=== PATIENT | female | born 1990 | race Caucasian/White ===

== ENCOUNTER 2019-07-27 08:51 | Day surgery (SDC) | payer BC ==
--- NOTE | 2019-07-26 15:47 | PCM.LDHP ---
L&D History of Present Illness - General Date of Service: 07/27/19 Admit Problem/Dx: Admission Diagnosis/Problem Admission Diagnosis/Problem 07/26/19 15:32 Letha is a 28-year-old 1 para 0 white female who is 22-6/7 weeks gestational age upon admission with an NATAN of 11/26/2019. She was admitted for a modified Shirodkar or modified John cervical cerclage placement. Diagnosis is incompetent cervix. Source of Information: Patient History Limitations: Reports: No Limitations - History of Present Illness Introduction:: Letha is a 28-year-old 1 para 0 white female who is 22-6/7 weeks gestational age upon admission with an NATAN of 11/26/2019. She was admitted for a modified Shirodkar or modified John cervical cerclage placement. Diagnosis is incompetent cervix. His been evaluated over the last week and found to have a following and progressively shortening cervix. On 07/16/2019 a routine complete obstetric ultrasound was performed and showed a cervix which had slight funneling but had a length of 4.4 cm. This was done transabdominally with a full bladder and decision was made to repeat ultrasound in 1 week to do a transvaginal ultrasound for reevaluation. On 07/26/2019 repeat ultrasound, this time done transvaginally, showed the appearance of funneling at the internal cervical os. The cervical length is diminished 2.2 cm. The findings are most probably consistent with early incompetent cervix. It was made to proceed with placement of a cervical cerclage. The procedure of modified Shirodkar versus John cervical cerclage is asked with patient. She appears to understand, appears to understand the risks versus benefits and wishes to proceed. [employer] SUPER[employer]OR history: Patient is a 1 para 0 NATAN of 11/26/2019 as determined by early ultrasound done at 7-2/7 weeks gestational age. 2 other ultrasounds been done which are supportive of her first ultrasound evaluation. Letha was seen for this at 10-2/7 weeks gestational age and has been seen on a couple occasions since that time. She has had a relatively unremarkable otherwise. Her [place] depression screening score was 5. She had her flu shot on 05/02/2019. She plans to breast-feed. She underwent pre- quell genetic testing which was negative for trisomy 21, 18, 13. She is rubella equivocal and recommendations for her to receive MMR after delivery. Laboratory testing and shows her blood to be A+, negative antibody screen. First hemoglobin was 14.1 g/dL. Platelets are 247,000. Rubella titer shows equivocal status. RPR is nonreactive. Urine culture was within normal limits. Hepatitis B surface antigen and HIV assays were both negative. Media and gonorrhea as were both negative. TSH done on 06/08/2019 was normal at 1.31 trina-international units per liter. The strep screen was negative. Fibronectin done 07/16/2019 was positive. Allergies: Ibuprofen Medications: 1. vitamins 1 daily 2. Levothyroxine 25 g orally daily Past medical history: 1. Abnormal Pap smear in the past with dysplasia treated with a LEEP Past surgical history: 1. Colonoscopy 2. LEEP Family history: Mother is alive, has COPD at age 64, is a smoker. History of later term miscarriage 2. Father is 15 years agowas a smoker. 4 brothers are all alive. 4 sisters all alive and well. One with alcoholism and 1 with history of early miscarriage. Maternal grandmother is secondary to cancer at age 75+ years. Maternal grandfather is secondary to suicide. Paternal grandmother is secondary to breast cancer at age 70. Paternal grandfather is at age 90cause uncertain. No known family history of cancer, bleeding/blood clotting disorders, anesthesia related issues or -related issues. Social history: Patient is . She lives in [place], [place]. She works at [employer]. She is a college graduate. She does not use any significant most alcohol, drugs or tobacco. Her 's name is John. Review of systems: In general patient has no complaints. Skin: Negative Lungs: No infectious symptoms or shortness of breath Cardiovascular: No chest pain or exercise intolerance Breasts: See changes only. GI: Negative : Patient has essentially no symptoms associated with these cervical shortening. She is other body habitus changes associated with . Musculoskeletal: Negative Neurological: Negative In general the patient is well-developed, well-nourished, pleasant female of stated age in no acute distress. On last evaluation in clinic patient's weight was 231.2 pounds. Pregravid weight was 240.8 pounds. Height is 5 feet 4 inches. Prepregnancy body mass index is 41.2. Blood pressure is 105/65. heart rate was 134 BPM. Skin is warm dry without lesions. HEENT, neck and back within normal limits. Lungs are clear with good breath sounds in all lung kendrick. Cardiovascular exam shows regular and rhythm without murmurs. Breast exam done at first visit was within normal limits. Abdomen is flat, soft, nontender without masses or organomegaly. Positive bowel sounds are noted. No inguinal lymphadenopathy or hernias are noted. Genital per speculum and bimanual done on 07/16/2019 shows. Patient is a very narrow pubic arch and cervical os is very difficult to reach technically. A fibronectin was performed and was positive. Group B strep screen has returned negative. Cervix at that time was felt to be firm and long. Only however cannot have been ruled out on exam. There were normal secretions and estrogenization vagina. No bleeding was noted. Uterus was 21 week size, appropriate for dates. Extremities and neurological exam are grossly within normal limits. H&P Review of Systems - Review of Systems: Review Of Systems: See Below L&D Exam - Exam Exam: See Below Problem List Initiated/Reviewed/Updated: Yes Assessment/Plan Comment:: 1. 22-4/7 week intrauterine , suspected incompetent cervix based upon ultrasound findings done on the serial basis. Cervix not 2.2 cm with funneling noted at the internal os. 2.Risk factors for surgery included history of . Increased weight. Shortened cervix and hypothyroidism. 3. Patient is rubella equivocalrecommend MMR after delivery and prior to discharge from the hospital 4. Prequel invasive testing negative for trisomy 21, 18, 13. 5. Hypothyroidism on replacement medications and clinically euthyroid with normal TSH Plan: 1. Plan to place a cerclage. It adequate cervical substance present we'll place a modified Shirodkar cervical cerclage. Otherwise we'll place a John cerclage. The procedure, risks, benefits especially in light of the risk factors above are all discussed in detail with patient. She appears understand and wishes to proceed. 2. Ancef 2 g IV preop for infection prophylaxis 3. ADVT prophylaxis with SCDs 4. Preoperative labs in addition to her labs to include CBC, urinalysis
[~2019-07-27 08:51] MED LIST: Lactated Ringers 1,000 ML IV SCH; Lidocaine 1%/Sod Bicarbonate in NS 8.4% 1 ML Syringe IDERM PRN; Sodium Chloride 0.9% 10 ML Syringe FLUSH PRN
[2019-07-27] MEDS ORDERED: fentaNYL 250 MCG/5 ML SDV ONE (09:46)
[2019-07-27] MEDS ORDERED: Midazolam 1 MG/ML 2 ML SDV ONE (09:46)
[2019-07-27] MEDS ORDERED: Ondansetron 4 MG/2 ML SDV ONE (09:46)
[2019-07-27] MEDS ORDERED: Lactated Ringers 1,000 ML ONE (09:46)
[2019-07-27] MEDS ORDERED: Propofol 200 MG/20 ML SDV ONE (09:46)
[2019-07-27] MEDS ORDERED: Lidocaine 1% 0 ML ONE (09:46)
[2019-07-27] MEDS ORDERED: ceFAZolin 1 GM Vial ONE (09:46)
[2019-07-27] MEDS ORDERED: Dexamethasone 4 MG/ML 5 ML MDV ONE (09:48)
[2019-07-27] MEDS ORDERED: Succinylcholine/Normal Saline 100 MG/5 ML Syringe ONE (09:48)
[2019-07-27] MEDS ORDERED: Metoclopramide 10 MG/2 ML SDV ONE (09:55)
--- NOTE | 2019-07-27 11:42 | PCM.PREANE ---
Preanesthetic Assessment - Procedure Proposed Procedure: Cervical Cerclage Placement - Anesthesia/Transfusion/Family Hx Anesthesia History: Prior Anesthesia Without Reaction Family History of Anesthesia Reaction: No - Review of Systems General: No Symptoms Pulmonary: No Symptoms Cardiovascular: No Symptoms Gastrointestinal: Other (GERD) Neurological: No Symptoms Other: Reports: None (Obesity BMI 39) - Physical Assessment NPO Status Date: 07/26/19 NPO Status Time: 19:00 Vital Signs: Last Vital Signs Temp 36.3 C 07/27/19 09:00 Pulse 97 07/27/19 09:00 Resp 16 07/27/19 09:00 BP 140/78 07/27/19 09:00 Pulse Ox 96 07/27/19 09:00 Height: 1.63 m Weight: 103.873 kg ASA Class: 2 Mental Status: Alert & Oriented x3 Airway Class: Mallampati = 1 Dentition: Reports: Normal Dentition Thyro-Mental Finger Breadths: 3 Mouth Opening Finger Breadths: 3 ROM/Head Extension: Full Lungs: Clear to Auscultation, Normal Respiratory Effort Cardiovascular: Regular Rate, Regular Rhythm - Lab Values: Laboratory Last Values WBC 13.27 K/mm3 (3.98-10.04) H 07/27/19 09:15 RBC 4.39 M/mm3 (3.98-5.22) 07/27/19 09:15 Hgb 12.7 gm/dl (11.2-15.7) 07/27/19 09:15 Hct 37.6 % (34.1-44.9) 07/27/19 09:15 MCV 85.6 fl (79.4-94.8) 07/27/19 09:15 MCH 28.9 pg (25.6-32.2) 07/27/19 09:15 MCHC 33.8 g/dl (32.2-35.5) 07/27/19 09:15 RDW Std Deviation 41.9 fL (36.4-46.3) 07/27/19 09:15 Plt Count 279 K/mm3 (182-369) 07/27/19 09:15 MPV 9.4 fl (9.4-12.3) 07/27/19 09:15 Neut % (Auto) 82.8 % (34.0-71.1) H 07/27/19 09:15 Lymph % (Auto) 11.5 % (19.3-51.7) L 07/27/19 09:15 [place] % (Auto) 4.7 % (4.7-12.5) 07/27/19 09:15 Eos % (Auto) 0.5 (0.7-5.8) L 07/27/19 09:15 Baso % (Auto) 0.1 % (0.1-1.2) 07/27/19 09:15 Neut # (Auto) 10.99 K/mm3 (1.56-6.13) H 07/27/19 09:15 Lymph # (Auto) 1.52 K/mm3 (1.18-3.74) 07/27/19 09:15 [place] # (Auto) 0.63 K/mm3 (0.24-0.36) H 07/27/19 09:15 Eos # (Auto) 0.07 K/mm3 (0.04-0.36) 07/27/19 09:15 Baso # (Auto) 0.01 K/mm3 (0.01-0.08) 07/27/19 09:15 Urine Color Yellow (Yellow) 07/27/19 08:57 Urine Appearance Clear (Clear) 07/27/19 08:57 Urine pH 7.0 (5.0-8.0) 07/27/19 08:57 Ur Specific [place] 1.025 (1.005-1.030) 07/27/19 08:57 Urine Protein Negative (Negative) 07/27/19 08:57 Urine Glucose (UA) Negative (Negative) 07/27/19 08:57 Urine Ketones Negative (Negative) 07/27/19 08:57 Urine Occult Blood Negative (Negative) 07/27/19 08:57 Urine Nitrite Negative (Negative) 07/27/19 08:57 Urine Bilirubin Negative (Negative) 07/27/19 08:57 Urine Urobilinogen 0.2 (0.2-1.0) 07/27/19 08:57 Ur Leukocyte Esterase Trace (Negative) H 07/27/19 08:57 - Allergies Allergies/Adverse Reactions: Allergies Allergy/AdvReac Type Severity Reaction Status Date / Time ibuprofen Allergy Facial Verified 07/27/19 09:23 Swelling - Anesthesia Plan Pre-Op Medication Ordered: Other (Metoclopramine 10 mg IVP) - Acknowledgements Anesthesia Type Planned: Spinal Pt an Appropriate Candidate for the Planned Anesthesia: Yes Alternatives and Risks of Anesthesia Discussed w Pt/Guardian: Yes Pt/Guardian Understands and Agrees with Anesthesia Plan: Yes PreAnesthesia Questionnaire INTERN History: Reports: - Past Surgical History HEENT Surgical History: Reports: Oral Surgery GI Surgical History: Reports: Colonoscopy, EGD Female Surgical History: Reports: LEEP - SUBSTANCE USE Smoking Status *Q: Never Smoker Recreational Drug Use History: No - CURRENT (IN HOUSE) MEDS Current Meds: Current Medications Lactated Ringer's (Ringers, Lactated) 1,000 mls @ 125 mls/hr IV ASDIRECTED TALIB Stop: 07/27/19 23:00 Last Admin: 07/27/19 09:25 Dose: 125 mls/hr Lidocaine/Sodium Bicarbonate (Buffered Lidocaine 1% In Ns 8.4%) 0.25 ml IDERM ONETIME PRN PRN Reason: Prior to IV Start Stop: 07/27/19 18:00 Last Admin: 07/27/19 09:25 Dose: 0.25 ml Sodium Chloride (Saline Flush) 10 ml FLUSH ASDIRECTED PRN PRN Reason: Keep Vein Open Stop: 07/27/19 18:00 Discontinued Medications Cefazolin Sodium (Ancef) Confirm Administered Dose 2 gm .ROUTE .STK-MED ONE Stop: 07/27/19 09:47 Dexamethasone (Dexamethasone) Confirm Administered Dose 20 mg .ROUTE .STK-MED ONE Stop: 07/27/19 09:49 Fentanyl (Sublimaze) Confirm Administered Dose 250 mcg .ROUTE .STK-MED ONE Stop: 07/27/19 09:47 Lidocaine HCl (Xylocaine-Mpf 1%) Confirm Administered Dose 4 mls @ as directed .ROUTE .STK-MED ONE Stop: 07/27/19 09:47 Lactated Ringer's (Ringers, Lactated) Confirm Administered Dose 1,000 mls @ as directed .ROUTE .STK-MED ONE Stop: 07/27/19 09:47 Metoclopramide HCl (Reglan) Confirm Administered Dose 10 mg .ROUTE .STK-MED ONE Stop: 07/27/19 09:56 Midazolam HCl (Versed 1 Mg/Ml) Confirm Administered Dose 2 mg .ROUTE .STK-MED ONE Stop: 07/27/19 09:47 Ondansetron HCl (Zofran) Confirm Administered Dose 4 mg .ROUTE .STK-MED ONE Stop: 07/27/19 09:47 Propofol (Diprivan 20 Ml) Confirm Administered Dose 400 mg .ROUTE .STK-MED ONE Stop: 07/27/19 09:47 Succinylcholine Chloride (Succinylcholine In Ns Pf) Confirm Administered Dose 100 mg .ROUTE .STK-MED ONE Stop: 07/27/19 09:49
--- NOTE | 2019-07-27 11:43 | PCM.POSTAN ---
POST ANESTHESIA ASSESSMENT - MENTAL STATUS Mental Status: Alert, Oriented - VITAL SIGNS Vital Signs: Last Vital Signs Temp 36.3 C 07/27/19 09:00 Pulse 97 07/27/19 09:00 Resp 16 07/27/19 09:00 BP 140/78 07/27/19 09:00 Pulse Ox 96 07/27/19 09:00 1131 115/60 87 15 100% 97F - RESPIRATORY Respiratory Status: Respiratory Rate WNL, Airway Patent, O2 Saturation Stable - CARDIOVASCULAR CV Status: Pulse Rate WNL, Blood Pressure Stable - GASTROINTESTINAL GI Status: No Symptoms - PAIN Pain Score: 0 - POST OP HYDRATION Hydration Status: Adequate & Stable
[2019-07-27] MEDS ORDERED: fentaNYL 100 MCG/2 ML SDV IVPUSH PRN (11:45)
[2019-07-27] MEDS ORDERED: Ondansetron 4 MG/2 ML SDV IVPUSH PRN ×2 (11:45→12:11)
[2019-07-27] MEDS ORDERED: Acetaminophen 325 MG Tab PO PRN (12:11)
--- NOTE | 2019-07-27 12:22 | PCM.OPNOTE ---
- General Post-Op/Procedure Note Date of Surgery/Procedure: 07/27/19 Operative Procedure(s): Modified Shirodkar cervical cerclage Findings: Cervix on ultrasound 07/26/2019 was 2.2 cm in length. Findings at the time of surgery were consistent with this. Cervical consistency was very soft. It appeared that there was some cervical dilation but no more than 1 cm. The cervix was very high in the canal which needed technically difficult to place the suture. Pre Op Diagnosis: 1. 22-5/7 week intrauterine . 2. Incompetent cervix Post-Op Diagnosis: Same Anesthesia Technique: Spinal Primary Surgeon: Tam Shaver Secondary Surgeon: Thierry Fay Anesthesia Provider: Ya aHnkins Clinical Project Leader: Beto Clemons Role of Clinical Project Leader: Retraction, assistance, patient safety, quality of care. Fluid Replacement, Intraop: 1,500 EBL in mLs: 50 Complications: None Condition: Good Free Text/Narrative:: Surgery duration: 17 minutes Consent was signed after discussion with patient and her concerning the procedure, risks, benefits, limitations, failure rate and follow-up cerclage. The patient was taken to the operating room and placed in a supine position on the operating table. She received 2 g of Ancef preoperatively for infection prophylaxis and had sequential compression stockings in place for DVT prophylaxis. She was administered by minus and after adequate anesthesia was placed in a dorsal lithotomy position. Patient was prepped on the exterior by staff and was draped in usual fashion. A speculum was placed and a very gentle internal Betadine prep was done by myself. Cervix was visualized, evaluated and found to be dilated as previously documented. The anterior lip of the cervix and the posterior lip of the cervix were grasped with ring forceps and gently retracted to length and cervix as much as possible. Using Tevdek tape a circumferential stitch was placed with around the cervix at the highest possible position. It was placed in a modified Shirodkar fashion entering the subepithelial layer anteriorly at 12 o'clock position and placed in full circumference to anchor the suture in the appropriate position. When this was finished it was tied at the 12 o'clock position. An 2-0 silk suture was then used to secure the ends of the Tevdek tape to keep them from unraveling. At this time old blood was removed from the vagina. The cervix was noted to be entirely closed with the suture placement. Stitch was in place and approximately 1-1/2 cm from the end of the cervix. No problems were encountered. The speculum was removed from the vagina, patient was returned to supine position. She left the operating room in good condition. heart rate was assessed after surgery and was found to be normal.
--- NOTE | 2019-07-27 12:37 | PCM48HPAN ---
Post Anesthesia Note - EVALUATION WITHIN 48HRS OF ANESTHETIC Vital Signs in Normal Range: Yes Patient Participated in Evaluation: Yes Respiratory Function Stable: Yes Airway Patent: Yes Cardiovascular Function Stable: Yes Hydration Status Stable: Yes Pain Control Satisfactory: Yes Nausea and Vomiting Control Satisfactory: Yes Mental Status Recovered: Yes Vital Signs: Last Vital Signs Temp 36.5 C 07/27/19 12:30 Pulse 97 07/27/19 09:00 Resp 20 07/27/19 12:30 BP 118/65 07/27/19 12:30 Pulse Ox 97 07/27/19 12:30 - COMMENTS/OBSERVATIONS Free Text/Narrative:: Spinal anesthetic resolving. Good bilateral movement noted to lower extremities. Letha will go to OB room 7 until complete resolution of spinal block and she has voided. No further questions at this time.
== END 2019-07-27 15:25 | disposition home or self-care (01) ==
LOC: JD.SDS 08:51
PROVIDERS: ATTEND Obstetrics & Gynecology
DX: O34.32 Maternal care for cervical incompetence, second trimester (principal); O99.282 Endocrine, nutritional and metabolic diseases complicating pregnancy, second trimester; E03.9 Hypothyroidism, unspecified; Z3A.22 22 weeks gestation of pregnancy; Z79.899 Other long term (current) drug therapy
CPT/HCPCS: 36415; 59320; 81003; 85025; J0690; J2765; J7120; 00948; J0330; J1100; J2001; J2250; J2405; J2704; J3010

== ENCOUNTER 2019-11-22 03:33 | Inpatient (IN) | payer BC ==
[2019-11-22] MEDS ORDERED: Sodium Chloride 0.9% 10 ML Syringe FLUSH PRN (04:11)
[2019-11-22] MEDS ORDERED: Lidocaine 1% 50 ML MDV INJECT ONE (04:11)
[2019-11-22] MEDS ORDERED: Oxytocin/Lactated Ringers 10 UNIT/1,000 ML BAG IV SCH ×2 (04:15→08:15)
--- NOTE | 2019-11-22 04:46 | PCM.LDHP ---
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 She is bulging bag of grider. AROM with resultant light conium stained amniotic fluid. heart tones are reassuring. Source of Information: Patient History Limitations: Reports: No Limitations - History of Present Illness Introduction:: Letha is a 29-year-old 1 para 0 white female who was admitted to labor and delivery early morning babysitter hours of 11/22/2019 at the 9-3/7 weeks gestational age with an NATAN of 11/26/2019 reported contractions and is found to be completely dilated. She is bulging bag of grider. AROM with resultant light conium stained amniotic fluid. heart tones are reassuring.She reportedly was sleeping until approximately 2300 hrs. on 2019 when she got up to go to the bathroom and notes that she was howard. She monitored for short period time and they are not increased to every 4 minutes. They've become stronger and she decided to call and come into labor and delivery. 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 Last menstrual period is unknown. Cycles somewhat irregular. Menarche at age 10. She is not using any control at conception this was a desired . NATAN is supported by at least 2 ultrasounds done 07/11/2019 and 07/16/2019. Serial ultrasounds showed a shortening and dilation of the cervix to 2 cm starting at approximately 21 weeks gestational age. This is consistent with the diagnosis of premature cervical dilation consistent with incompetent cervix. She underwent a modified Shirodkar cervical cerclage placement July 2019. Cerclage remained in place to 37 weeks gestational age at which time was removed. With removal cervix immediately dilated to 3 cm. Patient is group B strep negative. She is rubella equivocal and it is recommended that she have an MMR after delivery. Her [place] depression screening score on 2018 was 5/30. She received her flu shot on 05/02/2019. She plans to breast- feed. The patient had Prequel noninvasive lab testing which was negative for trisomy 21, 18 and 13 and was consistent with female . She had her T dap unto 12/11/2019. She is hypothyroid and on replacement thyroid medication but reports being clinically euthyroid. Laboratory testing shows her to be a positive with negative and by screen. First hemoglobin was 14.1 milligrams per deciliter. Her platelets were 247. Rubella titer is equivocal. RPR is nonreactive. Urine cultures negative. Hepatitic B surface antigen and HIV assays were both negative. Chlamydia and gonorrhea tests were both negative. Her second trimester hematocrit was 37.6. Platelets were 270,000 and her 1 hour GTT was normal at 115. Group B strep screen was negative. Allergies: Ibuprofen which causes swelling. Medications: 1. vitamins daily 2. Levothyroxine 25 g per day. Past medical history: 1. Hypothyroidism on medications. 2. Hiatal hernia 3. History of abnormal Pap smear with a LEEP performed 2010. Past surgical history: 1. Colonoscopy 2. LEEP Family history: Mother is alive but has COPD at age 64 is a smoker. History of later term miscarriages 2 at 8 months. Father 15 years ago was a smoker. 4 brothers are all alive. 4 sisters all alive and well woman with alcohol abuse diagnosis WOODY-1 with early miscarriage. Paternal grandmother is secondary to cancer age 75. Maternal grandfather secondary to suicide. Paternal grandmother secondary to breast cancer at age 70. Paternal grandfather is at age 90. There is no known family history of cancer otherwise. No bleeding or blood clotting disorders, anesthesia related issues or related concerns in the family. Patient has a cousin with autism. Social history: Letha is . is John. She works at [employer] in [place], [place]. She is a college graduate. She does not use any significant loss of alcohol, drugs or tobacco but her does smoke therefore she has a history of secondhand smoking. Review of systems: In general patient has no complaints. Patient has minimal discomfort from contractions she is having. Skin: Negative Lungs: No infectious symptoms or shortness of breath Cardiovascular: No chest pain or exercise intolerance Breasts: changes. GI: Negative : Increase in body habitus/abdominal girth secondary to Musculoskeletal: Negative Neurological: Negative In general the patient is well-developed, well-nourished, pleasant female of stated age in no acute distress. On last evaluation in clinic her weight was 246.8 pounds which is increased from 224.8 pounds on first visit 422 pound increase. Her blood pressures 132/80. Last cervical clinic shows cervix 3 cm dilated, 70% effaced, soft, mid position, -3 station. Skin is warm dry without lesions. HEENT, neck and back within normal limits. Lungs are clear with good breath sounds in all lung kendrick. Cardiovascular exam shows regular and rhythm without murmurs. Breasts exam is deferred having been done at first visit found to be normal. The at this time. Abdomen is is gravid with last fundal height clinic noted to be 38.5 cm with baby in vertex presentation.. Genital digital exam shows complete cervical dilation. -3 station. Bulging bag of grider is ruptured with resultant light meconium-stained amniotic fluid. Baby is cephalic presentation. Extremities and neurological exam are grossly within normal limits. 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: - Past Surgical History HEENT Surgical History: Reports: Oral Surgery GI Surgical History: Reports: Colonoscopy, EGD Female Surgical History: Reports: LEEP Social & Family History - Caffeine Use Caffeine Use: Reports: Soda H&P Review of Systems - Review of Systems: Review Of Systems: See Below L&D Exam - Exam Exam: See Below - Vital Signs Weight: 113.081 kg Problem List Initiated/Reviewed/Updated: Yes Orders Last 24hrs: Active Orders 24 hr Category Date Time Status Patient Status [ADT] Routine ADT 11/22/19 03:45 Active Activity as Tolerated [RC] PFP Care 11/22/19 04:11 Active Communication Order [RC] ASDIRECTED Care 11/22/19 04:11 Active Heart Tones [RC] ASDIRECTED Care 11/22/19 04:15 Active Non Stress Test [RC] PER UNIT ROUTINE Care 11/22/19 03:45 Active Notify Provider [RC] PFP Care 11/22/19 04:11 Active Notify Provider [RC] PRN Care 11/22/19 04:11 Active Peripheral IV Care [RC] . DIRECTED Care 11/22/19 04:15 Active Vital Signs [RC] PER UNIT ROUTINE Care 11/22/19 03:45 Active Regular Diet [DIET] Diet 11/22/19 Breakfast Active CBC WITH AUTO DIFF [HEME] Stat Lab 11/22/19 04:22 Received RAPID PLASMA REAGIN,RPR [CHEM] Routine Lab 11/22/19 04:22 Received Lactated Ringers [Ringers, Lactated] 1,000 ml Med 11/22/19 04:15 Active IV ASDIRECTED Oxytocin/Lactated Ringers [Pitocin in LR 10 Units/1,000 Med 11/22/19 04:15 Active ML] 10 unit in 1,000 ml IV .CONTINUOUS Sodium Chloride 0.9% [Saline Flush] Med 11/22/19 04:11 Active 10 ml FLUSH ASDIRECTED PRN Electronic Heart Tones Ext w TOCO [WOMSER] Oth 11/22/19 04:11 Ordered Routine Electronic Heart Tones Internal [WOMSER] Per Unit Oth 11/22/19 04:11 Ordered Routine Peripheral IV Insertion Adult [OM.PC] Routine Oth 11/22/19 04:11 Ordered Resuscitation Status Routine Resus Stat 11/22/19 03:45 Ordered Medication Orders Lactated Ringer's (Ringers, Lactated) 1,000 mls @ 100 mls/hr IV ASDIRECTED TALIB Oxytocin/Lactated Ringer's (Pitocin In Lr 10 Units/1,000 Ml) 10 unit in 1,000 mls @ 500 mls/hr IV .CONTINUOUS TALIB; Protocol Sodium Chloride (Saline Flush) 10 ml FLUSH ASDIRECTED PRN PRN Reason: Keep Vein Open Assessment/Plan Comment:: 1. 39-3/7 week intrauterine , active labor with complete cervical dilation upon admission to the hospital. 2. History of incompetent cervixHistory of placement of a modified Shirodkar cerclage which was removed at 37 weeks gestational age. 3. Group B strep negative 4. Patient is comfortable with her labor as time. Not planning on epidural. 5. Rubella equivocal. Recommend MMR prior to discharge home from the hospital 6. Patient plans to breast-feed. 7. Prequel DNA testing was negative 8. T dap was given on 09/17/2019, patient had her flu shot on 05/02/2019. 9. Hypothyroidism on replacement medications and clinically euthyroid. 10. Light meconium-stained amniotic fluid with reassuring heart tones. Plan: 1. Anticipate normal spontaneous vaginal delivery 2. Support breast-feeding and plans 3. CBC and RPR on admission per protocol 4. Routine labor care.
[2019-11-22] MEDS: Lactated Ringers 1,000 ML IV SCH ×3 (08:23→12:17)
[2019-11-22] MEDS ORDERED: Bupivacaine/fentaNYL/NS 100 ML Bag EPIDUR PRN (11:15)
[2019-11-22] MEDS ORDERED: fentaNYL 100 MCG/2 ML SDV EPIDUR PRN (11:15)
[2019-11-22] MEDS ORDERED: ePHEDrine 50 MG/ML SDV IVPUSH PRN (11:15)
[2019-11-22] MEDS ORDERED: diphenhydrAMINE 50 MG/ML SDV IVPUSH PRN (11:15)
[2019-11-22] MEDS ORDERED: Lidocaine 1.5% with EPINEPHrine 1:200,000 5 ML Amp ONE (12:00)
--- NOTE | 2019-11-22 12:13 | PCM.PREANE ---
Preanesthetic Assessment - Procedure Proposed Procedure: Continuous labor epidural - Anesthesia/Transfusion/Family Hx Anesthesia History: Prior Anesthesia Without Reaction Transfusion History: No Prior Transfusion(s) - Review of Systems General: No Symptoms Pulmonary: No Symptoms Cardiovascular: No Symptoms Gastrointestinal: No Symptoms Neurological: No Symptoms Other: Reports: None - Physical Assessment Vital Signs: Last Vital Signs Temp 97.6 F 11/22/19 03:45 Pulse Resp 17 11/22/19 03:45 BP 127/74 11/22/19 03:45 Pulse Ox 100 11/22/19 03:45 Height: 1.63 m Weight: 113.081 kg ASA Class: 3 (morbid obesity) Mental Status: Alert & Oriented x3 Airway Class: Mallampati = 2 Dentition: Reports: Normal Dentition Thyro-Mental Finger Breadths: 3 Mouth Opening Finger Breadths: 3 Lungs: Clear to Auscultation, Normal Respiratory Effort Cardiovascular: Regular Rate, Regular Rhythm - Lab Values: Laboratory Last Values WBC 12.63 K/mm3 (3.98-10.04) H 11/22/19 04:22 RBC 4.45 M/mm3 (3.98-5.22) 11/22/19 04:22 Hgb 12.3 gm/dl (11.2-15.7) 11/22/19 04:22 Hct 37.5 % (34.1-44.9) 11/22/19 04:22 MCV 84.3 fl (79.4-94.8) 11/22/19 04:22 MCH 27.6 pg (25.6-32.2) 11/22/19 04:22 MCHC 32.8 g/dl (32.2-35.5) 11/22/19 04:22 RDW Std Deviation 44.0 fL (36.4-46.3) 11/22/19 04:22 Plt Count 266 K/mm3 (182-369) 11/22/19 04:22 MPV 8.9 fl (9.4-12.3) L 11/22/19 04:22 Neut % (Auto) 82.2 % (34.0-71.1) H 11/22/19 04:22 Lymph % (Auto) 12.7 % (19.3-51.7) L 11/22/19 04:22 [place] % (Auto) 4.0 % (4.7-12.5) L 11/22/19 04:22 Eos % (Auto) 0.5 (0.7-5.8) L 11/22/19 04:22 Baso % (Auto) 0.2 % (0.1-1.2) 11/22/19 04:22 Neut # (Auto) 10.39 K/mm3 (1.56-6.13) H 11/22/19 04:22 Lymph # (Auto) 1.60 K/mm3 (1.18-3.74) 11/22/19 04:22 [place] # (Auto) 0.51 K/mm3 (0.24-0.36) H 11/22/19 04:22 Eos # (Auto) 0.06 K/mm3 (0.04-0.36) 11/22/19 04:22 Baso # (Auto) 0.02 K/mm3 (0.01-0.08) 11/22/19 04:22 - Allergies Allergies/Adverse Reactions: Allergies Allergy/AdvReac Type Severity Reaction Status Date / Time ibuprofen Allergy Facial Verified 11/22/19 05:13 Swelling - Acknowledgements Anesthesia Type Planned: Epidural Pt an Appropriate Candidate for the Planned Anesthesia: Yes Alternatives and Risks of Anesthesia Discussed w Pt/Guardian: Yes Pt/Guardian Understands and Agrees with Anesthesia Plan: Yes PreAnesthesia Questionnaire - Past Health History Medical/Surgical History: Denies Medical/Surgical History Gastrointestinal History: Reports: Hiatal 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: Endocrine/Metabolic History: Reports: Hypothyroidism - Past Surgical History HEENT Surgical History: Reports: Oral Surgery GI Surgical History: Reports: Colonoscopy, EGD Female Surgical History: Reports: LEEP - SUBSTANCE USE Smoking Status *Q: Never Smoker Second Hand Smoke Exposure: Yes Recreational Drug Use History: No - HOME MEDS Home Medications: Home Meds Levothyroxine Sodium [Levo-T] 25 mcg PO DAILY 11/22/19 [History] Prenat 115/Iron Fum/Folic/Dss [ 19 Tablet] 1 each PO DAILY 11/22/19 [ History] - CURRENT (IN HOUSE) MEDS Current Meds: Current Medications Diphenhydramine HCl (Benadryl) 25 mg IVPUSH Q6H PRN PRN Reason: pruritis Ephedrine Sulfate (Ephedrine Sulfate) 5 mg IVPUSH ASDIRECTED PRN PRN Reason: Hypotension Fentanyl (Sublimaze) 100 mcg EPIDUR Q3H PRN PRN Reason: Pain Last Admin: 11/22/19 11:30 Dose: 100 mcg Fentanyl/Bupivacaine HCl (Fentanyl/Bupivacaine/Ns 2 Mcg-0.125% 100 Ml) 100 ml EPIDUR ASDIRECTED PRN PRN Reason: Pain Last Admin: 11/22/19 11:30 Dose: 100 ml Lactated Ringer's (Ringers, Lactated) 1,000 mls @ 100 mls/hr IV ASDIRECTED TALIB Last Admin: 11/22/19 11:10 Dose: 100 mls/hr Oxytocin/Lactated Ringer's (Pitocin In Lr 10 Units/1,000 Ml) 10 unit in 1,000 mls @ 500 mls/hr IV .CONTINUOUS TALIB; Protocol Oxytocin/Lactated Ringer's (Pitocin In Lr 10 Units/1,000 Ml) 10 unit in 1,000 mls @ 12 mls/hr IV TITRATE TALIB; Protocol Last Titration: 11/22/19 09:10 Dose: 4 munits/min, 24 mls/hr Sodium Chloride (Saline Flush) 10 ml FLUSH ASDIRECTED PRN PRN Reason: Keep Vein Open Discontinued Medications Lidocaine HCl (Xylocaine 1%) 50 ml INJECT ONETIME ONE Stop: 11/22/19 04:12
[2019-11-22] MEDS ORDERED: Benzocaine/Menthol 20%-0.5% Spray 56 GM Canister TOP PRN (16:11)
[2019-11-22] MEDS ORDERED: Witch Hazel Medicated Pads 40/Jar TOP PRN (16:11)
[2019-11-22] MEDS ORDERED: Docusate Sodium 100 MG Cap PO PRN (16:11)
--- NOTE | 2019-11-22 16:22 | PCM.SN.2 ---
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 Patient underwent artificial rupture membranes with resultant lightly meconium-stained amniotic fluid. heart tones were reassuring throughout the entire labor. She progressed very slowly and with labor pattern being somewhat less than optimal Pitocin was started with augmentation increased to achieve contractions every 3 minutes. Patient underwent labor analgesia with epidural. At approximately 14 hours patient became completely dilated. She began pushing and at 1546 hrs. on 11/22/2019 she delivered a viable, cortez, male infant with Apgars of 8 and 9, weight of 3480 g (7 lbs. 11 oz.), a length of 20 inches, In a right occiput anterior position. Baby was placed on mom's abdomen and nose and mouth were bulb suctioned. Pitocin was increased 500 mL an hour to facilitate increase in uterine tone and decrease likelihood of bleeding. Baby was dried and warmed with a blanket. The cord blood pulsate for 2-3 minutes and then was clamped 2 and cut by the baby's father John. The umbilical cord had 3 vessels present within the. Cord blood was obtained. The placenta delivered at 1557 hrs. in a [place] presentation. It appeared intact and complete and was discarded per patient desire. There was some meconium staining to the placenta. Patient had a second-degree perineal laceration extending just onto the posterior introital area of the vagina. Very superficial left labia minora laceration also occurred. Secondary perineal laceration was repaired using 3-0 Monocryl in a routine fashion. One stitch was placed into the left labia minora laceration adequate reapproximation. Patient tolerated this well. Epidural analgesia was used for anesthesia for the laceration repair. Estimated blood loss was approximately 100 mL. Patient plans to breast-feed. Condition: Good
[2019-11-22] MEDS: Acetaminophen 325 MG Tab PO PRN (18:32)
[2019-11-23] MEDS ORDERED: Levothyroxine 25 MCG Tab PO SCH (06:00)
[2019-11-23] MEDS: Acetaminophen 325 MG Tab PO PRN ×2 (06:40→13:33)
--- NOTE | 2019-11-23 08:45 | PCM.SN.2 ---
- Free Text/Narrative Note: note: day #1 Patient is doing well in the period. Minimal lochia, voiding well, ambulated without problems. Nursing without concerns. Patient is afebrile, vital signs are stable Abdomen is flat, soft, uterus is below the umbilicus and is firm and nontender. Legs are nontender. Assessment: recovery going well. Plan: Routine care. Patient be discharged home within the next 24-48 hours.
[2019-11-23] MEDS ORDERED: Prenatal Multivitamin with Calcium/Folic Acid/Iron Tab PO SCH (09:00)
--- NOTE | 2019-11-23 10:32 | PCM48HPAN ---
Post Anesthesia Note - EVALUATION WITHIN 48HRS OF ANESTHETIC Vital Signs in Normal Range: Yes Patient Participated in Evaluation: Yes Respiratory Function Stable: Yes Airway Patent: Yes Cardiovascular Function Stable: Yes Hydration Status Stable: Yes Pain Control Satisfactory: Yes Nausea and Vomiting Control Satisfactory: Yes Mental Status Recovered: Yes Vital Signs: Last Vital Signs Temp 36.7 C 11/23/19 07:48 Pulse 84 11/23/19 07:48 Resp 16 11/23/19 07:48 BP 113/66 11/23/19 07:48 Pulse Ox 95 11/23/19 07:48
--- NOTE | 2019-11-23 10:38 | PCM.DCSUM1 ---
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 Patient underwent artificial rupture membranes with resultant lightly meconium-stained amniotic fluid. heart tones were reassuring throughout the entire labor. She progressed very slowly and with labor pattern being somewhat less than optimal Pitocin was started with augmentation increased to achieve contractions every 3 minutes. Patient underwent labor analgesia with epidural. At approximately 14 hours patient became completely dilated. She began pushing and at 1546 hrs. on 11/22/2019 she delivered a viable, cort[place], male infant with Apgars of 8 and 9, weight of 3480 g (7 lbs. 11 oz.), a length of 20 inches, In a right occiput anterior position. Baby was placed on mom's abdomen and nose and mouth were bulb suctioned. Pitocin was increased 500 mL an hour to facilitate increase in uterine tone and decrease likelihood of bleeding. Baby was dried and warmed with a blanket. The cord blood pulsate for 2-3 minutes and then was clamped 2 and cut by the baby's father John. The umbilical cord had 3 vessels present within the. Cord blood was obtained. The placenta delivered at 1557 hrs. in a [place] presentation. It appeared intact and complete and was discarded per patient desire. There was some meconium staining to the placenta. Patient had a second-degree perineal laceration extending just onto the posterior introital area of the vagina. Very superficial left labia minora laceration also occurred. Secondary perineal laceration was repaired using 3-0 Monocryl in a routine fashion. One stitch was placed into the left labia minora laceration adequate reapproximation. Patient tolerated this well. Epidural analgesia was used for anesthesia for the laceration repair. Estimated blood loss was approximately 100 mL. Patient plans to breast-feed. Patient is nursing well, ambulated without concerns, voiding without problems and has minimal lochia. She is desiring discharge home. Condition: Good Diagnosis: Stroke: No - Discharge Data Discharge Date: 11/23/19 Discharge Disposition: Home, Self-Care Condition: Good - Referral to Home Health Primary Care Physician: Tam Shaver MD - Patient Instructions Diet: Regular Diet as Tolerated (nursing diet with increase calories and calcium as directed) Activity: As Tolerated (No intercourse or tampons until bleeding resolves) Driving: May Drive Today Showering/Bathing: May Shower (May take a bath) Notify Provider of: Fever, Increased Pain, Swelling and Redness, Nausea and/or Vomiting - Discharge Plan Home Medications: Home Meds Levothyroxine Sodium [Levo-T] 25 mcg PO DAILY 11/22/19 [History] Prenat 115/Iron Fum/Folic/Dss [ 19 Tablet] 1 each PO DAILY 11/22/19 [ History] Acetaminophen [Tylenol] 650 mg PO Q4H PRN tablet 11/23/19 [Rx] Referrals: Tam Shaver MD [Primary Care Provider] - (The patient is to call clinic to arrange for a telemedicine appointment for 2 weeks ) - Discharge Summary/Plan Comment DC Time >30 min.: No Discharge Summary/Plan Comment: Discharge instructions: 1. Discharge home 2. Diet, activity and follow-up discussed with patient. Recommend nursing diet with increased calories and calcium. 3. Precautions given concern increased pain, bleeding, temperature, signs/ symptoms of DVT/PE. 4. Medications per home medication was printed, discussed with and given to the patient. 5. Patient is to call for telemedicine appointment for 2 weeks from the time of delivery. Diagnosis: Term -delivered Condition: Good - Patient Data Vitals - Most Recent: Last Vital Signs Temp 36.7 C 11/23/19 07:48 Pulse 84 11/23/19 07:48 Resp 16 11/23/19 07:48 BP 113/66 11/23/19 07:48 Pulse Ox 95 11/23/19 07:48 Weight - Most Recent: 113.081 kg I&O - Last 24 hours: Intake & Output 11/22/19 11/23/19 11/23/19 22:59 06:59 14:59 Intake Total 3500 320 Balance 3500 320 Lab Results - Last 24 hrs: Laboratory Results - last 24 hr 11/22/19 Range/Units 04:22 RPR Non-reactive (NONREACTIVE) Med Orders - Current: Current Medications Acetaminophen (Tylenol) 650 mg PO Q4H PRN PRN Reason: mild pain or fever Last Admin: 11/23/19 06:40 Dose: 650 mg Benzocaine/Menthol (Dermoplast Pain Relief [place]) 0 gm TOP ASDIRECTED PRN PRN Reason: Perineal Comfort Measure Last Admin: 11/22/19 18:33 Dose: 1 can Docusate Sodium (Colace) 100 mg PO BID PRN PRN Reason: Constipation Levothyroxine Sodium (Levothyroxine) 25 mcg PO ACBREAKFAST TALIB Last Admin: 11/23/19 06:40 Dose: 25 mcg Prenat Multivit/[place]/Iron/Folic Ac ( Plus Iron) 1 each PO DAILY TALIB Last Admin: 11/23/19 10:15 Dose: 1 each Witch Leigh (Tucks) 1 pad TOP ASDIRECTED PRN PRN Reason: Perineal comfort measure Last Admin: 11/22/19 18:33 Dose: 1 tub Discontinued Medications Diphenhydramine HCl (Benadryl) 25 mg IVPUSH Q6H PRN PRN Reason: pruritis Ephedrine Sulfate (Ephedrine Sulfate) 5 mg IVPUSH ASDIRECTED PRN PRN Reason: Hypotension Fentanyl (Sublimaze) 100 mcg EPIDUR Q3H PRN PRN Reason: Pain Last Admin: 11/22/19 11:30 Dose: 100 mcg Fentanyl/Bupivacaine HCl (Fentanyl/Bupivacaine/Ns 2 Mcg-0.125% 100 Ml) 100 ml EPIDUR ASDIRECTED PRN PRN Reason: Pain Last Admin: 11/22/19 11:30 Dose: 100 ml Lactated Ringer's (Ringers, Lactated) 1,000 mls @ 100 mls/hr IV ASDIRECTED TALIB Last Admin: 11/22/19 12:17 Dose: 100 mls/hr Oxytocin/Lactated Ringer's (Pitocin In Lr 10 Units/1,000 Ml) 10 unit in 1,000 mls @ 500 mls/hr IV .CONTINUOUS TALIB; Protocol Oxytocin/Lactated Ringer's (Pitocin In Lr 10 Units/1,000 Ml) 10 unit in 1,000 mls @ 12 mls/hr IV TITRATE TALIB; Protocol Last Titration: 11/22/19 15:47 Dose: 500 mls/hr Lidocaine HCl (Xylocaine 1%) 50 ml INJECT ONETIME ONE Stop: 11/22/19 04:12 Last Admin: 04/30/20 17:02 Dose: Not Given Lidocaine/Epinephrine (Xylocaine-Mpf 1.5% W/Epinephrine 1:200,000) 5 ml .ROUTE .[facility] Stop: 11/22/19 12:01 Sodium Chloride (Saline Flush) 10 ml FLUSH ASDIRECTED PRN PRN Reason: Keep Vein Open
== END 2019-11-23 17:45 | disposition home or self-care (01) | DRG 560 ==
LOC: JD.OB 03:33 → OBSVTOIN 15:46 → JD.OB 15:47
PROVIDERS: ADMIT Obstetrics & Gynecology; ATTEND Obstetrics & Gynecology
PROC: 10E0XZZ Delivery of Products of Conception, External Approach (ICD-10-PCS; principal; 2019-11-22)
PROC: 0KQM0ZZ Repair Perineum Muscle, Open Approach (ICD-10-PCS; 2019-11-22)
PROC: 3E0R3BZ Introduction of Anesthetic Agent into Spinal Canal, Percutaneous Approach (ICD-10-PCS; 2019-11-22)
PROC: 10907ZC Drainage of Amniotic Fluid, Therapeutic from Products of Conception, Via Natural or Artificial Opening (ICD-10-PCS; 2019-11-22)
DX: O77.0 Labor and delivery complicated by meconium in amniotic fluid (principal); O70.1 Second degree perineal laceration during delivery; O99.284 Endocrine, nutritional and metabolic diseases complicating childbirth; E03.9 Hypothyroidism, unspecified; Z3A.39 39 weeks gestation of pregnancy; Z37.0 Single live birth
CPT/HCPCS: 36415; 51702; 59025; 59409; 85025; 86592; A9270-GY; J2590; J3010; J7120